=== PATIENT | male | born 1980 | race Two or more races ===

== ENCOUNTER 2018-10-11 21:42 | Emergency (ER) | payer SELFPAY ==
[2018-10-11] MEDS ORDERED: DIPHTH,PERTUSS(ACELL),TET TOX 0.5 ML DISP.SYRIN. VAX IM ONE ×2 (22:41→23:00)
[2018-10-11] MEDS ORDERED: CEPH500C PO (22:52)
--- NOTE | 2018-10-11 22:53 | PHYS DOC ---
Past Medical History Past Medical History: No Pertinent History Past Surgical History: No Surgical History Alcohol Use: Occasionally Drug Use: None Adult General Chief Complaint Chief Complaint: SKIN RASH/ABSCESS HPI HPI Patient is a 38 year old male who presents with an old healing laceration and joint pain from where a glass table fell and injured him 3 days ago. He denies other injury. He does need a tetanus booster. Review of Systems Review of Systems Constitutional: Denies fever or chills [] Respiratory: Denies cough or shortness of breath [] Cardiovascular: No additional information not addressed in HPI [] GI: Denies abdominal pain, nausea, vomiting, bloody stools or diarrhea [] : Denies dysuria or hematuria [] Musculoskeletal: See HPI Integument: See HPI Neurologic: Denies headache, focal weakness or sensory changes [] Endocrine: Denies polyuria or polydipsia [] All other systems were reviewed and found to be within normal limits, except as documented in this note. Current Medications Current Medications Current Medications Medications (Trade) Dose Ordered Sig/Annie Start Time Stop Time Status Last Admin Dose Admin Diphtheria/ Tetanus/Acell Pertussis (Boostrix) 0.5 ml STK-MED ONCE 10/11/18 22:41 10/11/18 22:42 DC Allergies Allergies Allergies Coded Allergies Type Severity Reaction Last Updated Verified No Known Drug Allergies 10/11/18 No Physical Exam Physical Exam Constitutional: Well developed, well nourished, no acute distress, non-toxic appearance. [] Cardiovascular:Heart rate regular rhythm, no murmur [] Lungs & Thorax: Bilateral breath sounds clear to auscultation [] Abdomen: Bowel sounds normal, soft, no tenderness, no masses, no pulsatile masses. [] Skin: abrasion to left ankle with erythema and tenderness Back: No tenderness, no CVA tenderness. [] Extremities: left ankle tenderness with a healing abrasion, no cyanosis, no clubbing, ROM intact, no edema. [] Neurologic: Alert and oriented X 3, normal motor function, normal sensory function, no focal deficits noted. [] Psychologic: Affect normal, judgement normal, mood normal. [] Current Patient Data Vital Signs EKG EKG [] Radiology/Procedures Radiology/Procedures [][facility] [address] [place] [address] IMAGING REPORT Signed PATIENT: DIA DUMAS ACCOUNT: [id number] : 1980 LOCATION: ER AGE: 38 SEX: M EXAM STATUS: DEP ER ORD. PHYSICIAN: BETTY WILCOX APRN REASON: glass from a table fell on ankle 3 days ago, continued swelling/pain PROCEDURE: ANKLE LEFT 3V ANKLE LEFT 3V History: LEFT ANKLE PAIN AFTER TABLE FELL ON LATERAL SIDE OF LEG X3 DAYS AGO. SWELLING Comparison: None. Findings: 3 views left ankle are submitted. No acute fracture or dislocation is identified by radiographs. Impression: 1. No acute osseous abnormality is identified by radiographs. Electronically signed by: Amol Davis MD (10/11/2018 10:59 PM) [facility] DICTATED and SIGNED BY: AMOL DAVIS MD DATE: 10/11/18 2253 Course & Med Decision Making Course & Med Decision Making Pertinent Labs and Imaging studies reviewed. (See chart for details) [] Dragon Disclaimer Dragon Disclaimer This electronic medical record was generated, in whole or in part, using a voice recognition dictation system. Departure Departure Impression: Primary Impression: Abrasion Additional Impression: Secondary infection of skin Disposition: 01 HOME, SELF-CARE Condition: STABLE Referrals: NO PCP (PCP) Patient Instructions: Abrasion, [id number], Skin Infections Additional Instructions: Take the medication as directed. Keep the wounds clean and dry. Follow-up with your primary care provider in one week if not improving or return to the emergency department if worsening. Scripts Cephalexin (CEPHALEXIN) 500 Mg Capsule 1 CAP PO TID for skin infection, #30 CAP Prov: BETTY WILCOX APRN 10/11/18 Problem Qualifiers BETTY WILCOX APRN Oct 11, 2018 22:53
[2018-10-11 22:56] VITALS: BP 137/69
--- NOTE | 2018-10-11 23:04 | RAD ---
ANKLE LEFT 3V History: LEFT ANKLE PAIN AFTER TABLE FELL ON LATERAL SIDE OF LEG X3 DAYS AGO. SWELLING Comparison: None. Findings: 3 views left ankle are submitted. No acute fracture or dislocation is identified by radiographs. Impression: 1. No acute osseous abnormality is identified by radiographs. Electronically signed by: Dwaine Bruce MD (10/11/2018 10:59 PM) [facility]
== END 2018-10-11 22:55 | disposition home or self-care (01) ==
LOC: ER 21:42
DX: S90.512A Abrasion, left ankle, initial encounter (principal); L08.89 Other specified local infections of the skin and subcutaneous tissue; W22.8XXA Striking against or struck by other objects, initial encounter; Y93.89 Activity, other specified; Y92.89 Other specified places as the place of occurrence of the external cause; Y99.8 Other external cause status
CPT/HCPCS: 73610; 90471; 90715; 99283

== ENCOUNTER 2018-10-23 01:52 | Emergency (ER) | payer SELFPAY ==
[~2018-10-23] VITALS: Ht 170.2 cm; Wt 59.0 kg
[~2018-10-23 01:52] MED LIST: CEPH500C PO
[2018-10-23 02:15] VITALS: BP 123/77
[2018-10-23] MEDS ORDERED: HYDR-3164 PO (02:42)
[2018-10-23] MEDS ORDERED: CLIN150C14 PO (02:42)
[2018-10-23] MEDS ORDERED: MELO7.5T29 PO (02:42)
--- NOTE | 2018-10-23 02:42 | PHYS DOC ---
Past Medical History Past Medical History: No Pertinent History Past Surgical History: Other Additional Past Surgical Histo: Neck surgery 1998 Alcohol Use: Occasionally Drug Use: None Adult General Chief Complaint Chief Complaint: Toothache HPI HPI Patient is a 38 year old male who presents with left-sided dental pain. Patient broke a tooth approximately a week ago. Had a small amount of pain until several hours ago when the pain escalated. Patient is taken no medicine for this. He has seen no dentist or primary care physician for this. Worse with air blowing across it. No fever. No foul taste in the mouth. Pain is moderate in intensity and sharp in nature[] Review of Systems Review of Systems Constitutional: Denies fever or chills [] Eyes: Denies change in visual acuity, redness, or eye pain [] HENT: Denies nasal congestion or sore throat [] Respiratory: Denies cough or shortness of breath [] Cardiovascular: No chest pain or palpitations[] GI: Denies abdominal pain, nausea, vomiting, bloody stools or diarrhea [] : Denies dysuria or hematuria [] Musculoskeletal: Denies back pain or joint pain [] Integument: Denies rash or skin lesions [] Neurologic: Denies headache, focal weakness or sensory changes [] Endocrine: Denies polyuria or polydipsia [] All other systems were reviewed and found to be within normal limits, except as documented in this note. Current Medications Current Medications Current Medications Medications (Trade) Dose Ordered Sig/Annie Start Time Stop Time Status Last Admin Dose Admin Amoxicillin (Amoxil) 500 mg 1X ONCE 10/23/18 03:00 10/23/18 03:01 Ibuprofen (Motrin) 800 mg 1X ONCE 10/23/18 03:00 10/23/18 03:01 Allergies Allergies Allergies Coded Allergies Type Severity Reaction Last Updated Verified No Known Drug Allergies 10/11/18 No Physical Exam Physical Exam Constitutional: Well developed, well nourished, no acute distress, non-toxic appearance. [] HENT: Normocephalic, atraumatic, bilateral external ears normal, oropharynx moist, no oral exudates, nose normal tooth #20 is broken at the base, there is tenderness to percussion. No drainable abscess appreciated. [] Eyes: PERRLA, EOMI, conjunctiva normal, no discharge. [] Neck: Normal range of motion, no tenderness, supple, no stridor. [] Cardiovascular:Heart rate regular rhythm, no murmur [] Lungs & Thorax: Bilateral breath sounds clear to auscultation [] Abdomen: Not examined. [] Skin: Warm, dry, no erythema, no rash. [] Back: No tenderness, no CVA tenderness. [] Extremities: No tenderness, no cyanosis, no clubbing, ROM intact, no edema. [] Neurologic: Alert and oriented X 3, normal motor function, normal sensory function, no focal deficits noted. [] Psychologic: Affect normal, judgement normal, mood normal. [] Current Patient Data Vital Signs Vital Signs Date Time Temp Pulse Resp B/P (MAP) Pulse Ox O2 Delivery O2 Flow Rate FiO2 10/23/18 02:15 97.7 74 16 123/77 (92) 96 Room Air 97.7 EKG EKG [] Radiology/Procedures Radiology/Procedures [] Course & Med Decision Making Course & Med Decision Making Pertinent Labs and Imaging studies reviewed. (See chart for details) Medical decision making: Patient has a dental fracture with possibility of periapical abscess. Patient is nontoxic in appearance. We'll treat him with oral outpatient antibiotics and provide points of contact for outpatient additional care. Patient reports that he is finishing up a course of cephalexin for a leg injury. We will treat him with clindamycin due to the overlapping coverage between cephalexin and amoxicillin.[] Dragon Disclaimer Dragon Disclaimer This electronic medical record was generated, in whole or in part, using a voice recognition dictation system. Departure Departure Impression: Primary Impression: Periapical abscess Additional Impression: Broken tooth Disposition: 01 HOME, SELF-CARE Condition: IMPROVED Referrals: NO PCP (PCP) Patient Instructions: Dental Abscess, Dental Fracture Additional Instructions: Follow-up with your regular doctor and dentist in 2 days. If you do not have one a list of local clinics will be provided for you. Return to the ER if worsening pain, fever of more than 101, or any other concerns. Scripts Clindamycin Hcl (CLINDAMYCIN HCL) 150 Mg Capsule 300 MG PO QID for 10 Days, #80 CAP Prov: ROSELIABREZITA WEINSTEIN DO 10/23/18 Hydrocodone/Apap 5-325 (NORCO 5-325 TABLET) 1 Each Tablet 1-2 EACH PO PRN Q6HRS PRN for SEVERE PAIN, #15 as needed for pain Prov: GLENISJSZITA ALMANZA 10/23/18 Meloxicam (MELOXICAM) 7.5 Mg Tablet 7.5 MG PO DAILY, #20 TAB Prov: ZITA EDGAR DO 10/23/18 Problem Qualifiers Additional Impression: Broken tooth Encounter type: initial encounter Fracture type: closed Qualified Codes: S02.5XXA - Fracture of tooth (traumatic), initial encounter for closed fracture ZITA EDGAR DO Oct 23, 2018 02:42
[2018-10-23] MEDS ORDERED: IBUPROFEN 400 MG TABLET. PO ONE (03:00)
[2018-10-23] MEDS ORDERED: CLINDAMYCIN HCL 150 MG CAPSULE. PO ONE (03:00)
[2018-10-23] MEDS ORDERED: AMOXICILLIN 250 MG CAPSULE. PO ONE (03:00)
== END 2018-10-23 02:55 | disposition home or self-care (01) ==
LOC: ER 01:52
DX: S02.5XXA Fracture of tooth (traumatic), initial encounter for closed fracture (principal); K04.7 Periapical abscess without sinus; X58.XXXA Exposure to other specified factors, initial encounter; Y93.89 Activity, other specified; Y92.89 Other specified places as the place of occurrence of the external cause; Y99.8 Other external cause status
CPT/HCPCS: 99283

== ENCOUNTER 2018-10-27 15:17 | Emergency (ER) | payer SELFPAY ==
[~2018-10-27] VITALS: Ht 170.2 cm; Wt 59.0 kg
[~2018-10-27 15:17] MED LIST changes: +CLIN150C14 PO; +HYDR-3164 PO; +MELO7.5T29 PO
[2018-10-27 16:05] VITALS: BP 130/75
[2018-10-27] MEDS ORDERED: PENI500T PO (16:22)
--- NOTE | 2018-10-27 16:22 | PHYS DOC ---
Past Medical History Past Medical History: No Pertinent History Past Surgical History: Other Additional Past Surgical Histo: Neck surgery 1998 Alcohol Use: Occasionally Drug Use: None Adult General Chief Complaint Chief Complaint: SORE THROAT HPI HPI Patient is a 38 year old male who presents with on October 22 he was here for dental pain and dental abscess and was given clindamycin. Patient states that he has not been taking it with food but states he is feeling a burning in the epigastric area and up into his throat and at times he thinks it feels hard to swallow and slightly short of air. Review of Systems Review of Systems Constitutional: Denies fever or chills [] Eyes: Denies change in visual acuity, redness, or eye pain [] HENT: Denies nasal congestion or sore throat. Throat tightness and burning.[] Respiratory: Denies cough or shortness of breath [] Cardiovascular: No additional information not addressed in HPI [] GI:epigastric abdominal pain, denies nausea, vomiting, bloody stools or diarrhea [] : Denies dysuria or hematuria [] Musculoskeletal: Denies back pain or joint pain [] Integument: Denies rash or skin lesions [] Neurologic: Denies headache, focal weakness or sensory changes [] All other systems were reviewed and found to be within normal limits, except as documented in this note. Allergies Allergies Allergies Coded Allergies Type Severity Reaction Last Updated Verified No Known Drug Allergies 10/11/18 No Physical Exam Physical Exam Constitutional: Well developed, well nourished, no acute distress, non-toxic appearance. [] HENT: Normocephalic, atraumatic, bilateral external ears normal, oropharynx moist, no oral exudates, nose normal. [] Eyes: PERRLA, EOMI, conjunctiva normal, no discharge. [] Neck: Normal range of motion, no tenderness, supple, no stridor. [] Cardiovascular:Heart rate regular rhythm, no murmur [] Lungs & Thorax: Bilateral breath sounds clear to auscultation [] Abdomen: Bowel sounds normal, soft, no tenderness, no masses, no pulsatile masses. [] Skin: Warm, dry, no erythema, no rash. [] Back: No tenderness, no CVA tenderness. [] Extremities: No tenderness, no cyanosis, no clubbing, ROM intact, no edema. [] Neurologic: Alert and oriented X 3, normal motor function, normal sensory function, no focal deficits noted. [] Psychologic: Affect normal, judgement normal, mood normal. Normal physical exam.[] EKG EKG [] Radiology/Procedures Radiology/Procedures [] Course & Med Decision Making Course & Med Decision Making Patient is a 38 year old male who presents with on October 22 he was here for dental pain and dental abscess and was given clindamycin. Patient states that he has not been taking it with food but states he is feeling a burning in the epigastric area and up into his throat and at times he thinks it feels hard to swallow and slightly short of air. Patient speaks in full clear sentences. Lungs are clear to auscultation all lobes. Skin is pink warm and dry. Patient states he does not feel short of air or have epigastric burning or pain in his throat at this time. I told patient I would change the antibiotics to penicillin instead of clindamycin. Patient is in agreement to this. I also told patient he needs to take the antibiotics with meals as they do cause GI upset. Patient to follow-up with a dentist as soon as possible. Dragon Disclaimer Dragon Disclaimer This electronic medical record was generated, in whole or in part, using a voice recognition dictation system. Departure Departure Impression: Primary Impression: Encounter for medical screening examination Disposition: 01 HOME, SELF-CARE Condition: STABLE Referrals: NO PCP (PCP) Patient Instructions: Medical Screening Exam Additional Instructions: Follow-up with a dentist as soon as possible. Return for like her throat is closing, shortness of air, wheezing, or chest pain. Take medication with food. Scripts Penicillin V Potassium (PENICILLIN V POTASSIUM) 500 Mg Tablet 1 TAB PO TID, #30 TAB Prov: ALEX MALONEY APRN 10/27/18 ALEX MALONEY APRN Oct 27, 2018 16:22
== END 2018-10-27 16:28 | disposition home or self-care (01) ==
LOC: ER 15:17
DX: K04.7 Periapical abscess without sinus (principal); R10.13 Epigastric pain
CPT/HCPCS: 99283

== ENCOUNTER 2018-10-29 00:20 | Emergency (ER) | payer SELFPAY ==
[~2018-10-29] VITALS: Ht 175.3 cm; Wt 59.0 kg
[~2018-10-29 00:20] MED LIST changes: +PENI500T PO
[2018-10-29 01:59] LABS: FECAL OB PT NEGATIVE (NEG)
[2018-10-29] MEDS ORDERED: OMEP40CA5 PO (02:56)
--- NOTE | 2018-10-29 02:56 | PHYS DOC ---
Past Medical History Past Medical History: Anxiety Past Surgical History: Other Additional Past Surgical Histo: Neck surgery 1998 Alcohol Use: Occasionally Drug Use: None Adult General Chief Complaint Chief Complaint: CHEST WALL PAIN HPI HPI Patient is a 38-year-old male who presents with complaint of sharp, stabbing midsternal chest discomfort, worsened with deep breathing and palpation. Patient also complains of epigastric discomfort. He was recently seen at the emergency room and has been prescribed NSAIDs. He states that he has noticed some very dark stools since starting the NSAIDs. He rates the pain in his abdomen as moderate and describes it as burning. He rates the pain in his chest is moderate and he didn't describes a sharp and stabbing. Patient states that nothing is improving his symptoms. Review of Systems Review of Systems Constitutional: Denies fever or chills [] Respiratory: Denies cough or shortness of breath [] Cardiovascular: No additional information not addressed in HPI [] GI: Complains of epigastric abdominal pain without vomiting or diarrhea. Positive dark stools.[] Integument: Denies rash or skin lesions [] Neurologic: Denies headache, focal weakness or sensory changes [] All other systems were reviewed and found to be within normal limits, except as documented in this note. Allergies Allergies Allergies Coded Allergies Type Severity Reaction Last Updated Verified No Known Drug Allergies 10/11/18 No Physical Exam Physical Exam Constitutional: Well developed, well nourished, no acute distress, non-toxic appearance. [] HENT: Normocephalic, atraumatic, bilateral external ears normal, oropharynx moist, no oral exudates, nose normal. [] Eyes: PERRLA, EOMI, conjunctiva normal, no discharge. [] Neck: Normal range of motion, no tenderness, supple, no stridor. [] Cardiovascular: Regular rate and rhythm[] Lungs & Thorax: Bilateral breath sounds clear to auscultation [] Abdomen: Bowel sounds normal, soft, with epigastric tenderness. Rectal exam demonstrates normal-appearing brown stool which is guaiac negative. [] Skin: Warm, dry, no erythema, no rash. [] Extremities: No tenderness, no cyanosis, no clubbing, ROM intact, no edema. [] Neurologic: Alert and oriented X 3, no focal deficits noted. [] Current Patient Data Vital Signs Vital Signs Date Time Temp Pulse Resp B/P (MAP) Pulse Ox O2 Delivery O2 Flow Rate FiO2 10/29/18 03:00 54 12 99/61 (74) 97 Room Air 10/29/18 00:35 97.0 97.0 Lab Values Laboratory Tests Test 10/29/18 00:50 Stool Occult Blood Negative (NEG) EKG EKG [] Radiology/Procedures Radiology/Procedures [] Course & Med Decision Making Course & Med Decision Making Pertinent Labs and Imaging studies reviewed. (See chart for details) [] Dragon Disclaimer Dragon Disclaimer This electronic medical record was generated, in whole or in part, using a voice recognition dictation system. Departure Departure Impression: Primary Impression: Gastritis Additional Impression: Chest wall pain Disposition: HOME, SELF-CARE Condition: STABLE Referrals: NO PCP (PCP) Patient Instructions: Chest Wall Pain, Gastritis, Adult Scripts Omeprazole (OMEPRAZOLE) 40 Mg Capsule. 1 CAP PO DAILY, #30 CAP Prov: LEVAR DEL RIO Jr. DO 10/29/18 Problem Qualifiers Primary Impression: Gastritis Gastritis type: unspecified gastritis Chronicity: unspecified Gastritis bleeding: without bleeding Qualified Codes: K29.70 - Gastritis, unspecified, without bleeding LEVAR DEL RIO Jr. DO Oct 29, 2018 02:56
[2018-10-29 03:00] VITALS: BP 99/61
--- NOTE | 2018-10-29 11:54 | EKG ---
[facility] [address] [place] [address] Test Date: 2018-10-29 Test Time: 00:39:22 Pat Name: DIA DUMAS Department: Room: Gender: M Cpht: : 1980 Requested By: LEVAR DEL RIO Order Number: [id number] Reading MD: Chad Joaquin MD Measurements Intervals Teague Rate: 74 P: 64 MT: 162 QRS: 104 QRSD: 96 T: 37 QT: 372 QTc: 418 Interpretive Statements SINUS RHYTHM Electronically Signed On 10-29-2018 17:31:26 CDT by Chad Joaquin MD
== END 2018-10-29 03:06 | disposition home or self-care (01) ==
LOC: ER 00:20
DX: K29.60 Other gastritis without bleeding (principal); R07.89 Other chest pain; F41.9 Anxiety disorder, unspecified
CPT/HCPCS: 82274; 93005; 99284-25